=== PATIENT | female | born 1980 | race Caucasian/White ===

== ENCOUNTER 2017-11-01 14:30 | Outpatient (RCR) | payer MEDICARE ==
[2015-04-21 17:25] VITALS: BP 112/68
[~2017-11-01 14:30] MED LIST: ABILIFY2 MG PO; AMBIEN 10MG10 MG PO; AMBIEN10 MG PO; AMOXICILLIN 8751 TAB PO; ATIVAN0.5 MG PO; CLONIDINE0.1 MG PO; CYMBALTA PO; DIAMOX 250MG250 MG PO; ELAVIL100 MG PO; ELAVIL25 MG PO; ELAVIL75 MG PO; FIORICET 325 MG1 TA1 PO; FIORICET 325 MG1 TAB PO; FLEXERIL10 MG PO; FLUOXETINE PO; GABAPENTIN100 M1 PO; HYDROCODONE/APAP PO; HYDROXYZINE PAM25 MG PO; IBUPROFEN 200200 MG PO; IMITREX 6M6 MG/0.5 M SQ; IMITREX6 MG/0.5 M IM; KEPPRA500 MG PO; LAMICTAL 100MG100 MG PO; LINZESS145 MCG PO; LIORESAL 1010 MG/TAB PO; LISINOPRIL10 MG PO; LYRICA 100MG C100 M1 PO; LYRICA50 MG PO; MAG-OX 400400 MG PO; NEURONTIN600 M1 PO; NORCO 325 MG-101 TAB PO; NORCO 325 MG-51 TA1 PO; NORCO 325 MG-51 TAB PO; PERCOCET 325 MG1 TA2 PO; PHENERGAN 25 TA25 MG PO; PHENERGAN25 MG RC; PLAQUENIL 200M200 MG PO; PRILOSEC 20MG20 MG PO; PROZAC20 MG PO; PROZAC40 MG PO; REMERON15 MG PO; SEROPHENE50 MG PO; SEROQUEL25 MG PO; SEROQUEL50 MG PO; SKELAXIN400 MG PO; STADOL NASA25 MG/BOT NS; TEGRETOL100 MG PO; TOPAMAX100 MG PO; TOPAMAX50 MG PO; ULTRAM 50MG TAB50 MG PO; VERAPAMIL240 MG PO; VERAPAMIL80 MG PO; VISTARIL50 MG PO; XANAX0.5 MG PO; ZANAFLEX4 MG PO; ZANTAC 7575 MG PO; ZOFRAN4 M2 PO
== END 2017-11-01 15:00 | disposition home or self-care (01) ==
LOC: PT
DX: M47.817 Spondylosis without myelopathy or radiculopathy, lumbosacral region (principal); M53.3 Sacrococcygeal disorders, not elsewhere classified; Z88.1 Allergy status to other antibiotic agents; Z88.5 Allergy status to narcotic agent; Z88.8 Allergy status to other drugs, medicaments and biological substances

== ENCOUNTER → 2018-03-22 | Outpatient (CLI) | payer MEDICARE ==
[2015-04-21 17:25] VITALS: BP 112/68
[2018-03-22 14:49] LABS: URINE APPEARANCE CLOUDY; URINE BILIRUBIN NEGATIVE (NEGATIVE); URINE BLOOD NEGATIVE (NEGATIVE); URINE COLOR YELLOW; URINE GLUCOSE NEGATIVE (NEGATIVE); URINE KETONE NEGATIVE (NEGATIVE); URINE LEUKOCYTE ESTERASE NEGATIVE (NEGATIVE); URINE NITRATE NEGATIVE (NEGATIVE); URINE PROTEIN(semi-quant) NEGATIVE (NEGATIVE); URINE UROBILINOGEN NORMAL (NORMAL); URINE WBC 0-1 /hpf (0-3)
== END ==
LOC: RAD 13:04
PROVIDERS: Physician Assistant
DX: M79.604 Pain in right leg (principal); R22.41 Localized swelling, mass and lump, right lower limb; R30.0 Dysuria

== ENCOUNTER 2018-10-10 17:39 | Emergency (ER) | payer MEDICARE, OTHER ==
[~2018-10-10] VITALS: Ht 162.6 cm; Wt 61.4 kg
[2018-10-10] MEDS ORDERED: TIZANIDINE HYDRO4 MG PO (17:55)
[2018-10-10] MEDS ORDERED: TOPIRAMATE200 MG PO (17:55)
[2018-10-10] MEDS ORDERED: CYPROHEPTADINE H4 M1 PO (17:56)
[2018-10-10] MEDS ORDERED: DULOXETINE60 MG PO (17:56)
[2018-10-10] MEDS ORDERED: ZOFRAN ODT4 MG PO (17:56)
[2018-10-10] MEDS ORDERED: OXYCODONE HCL10 M1 PO (17:56)
[2018-10-10] MEDS ORDERED: AMOXICILLIN AND1 TA2 PO (17:56)
[2018-10-10] MEDS ORDERED: NEURONTIN300 MG/CAP (17:56)
[2018-10-10] MEDS ORDERED: ALPRAZOLAM1 MG PO (17:56)
[2018-10-10 18:25] LABS: EOS # 0.1 (0.04-0.40); EOS % 0.9 % (1.0-5.0); HEMATOCRIT 39.9 % (37.0-47.0); HEMOGLOBIN 13.6 g/dL (12.5-16.0); LYMPH# 4.5 (1.50-4.00); MEAN CELL VOLUME 94 fl (78-100); MEAN CORPUSCULAR HEMOGLOBIN 32 pg (27-31); MEAN CORPUSCULAR HGB CONC 34 g/dL (33-37); MEAN PLATELET VOLUME 8.5 fl (7.4-10.4); MONO # 0.7 (0.20-0.80); NEU # 3.3 (1.40-6.50); PLATELET COUNT 324 K/mm3 (130-400); RED BLOOD COUNT 4.23 M/mm3 (4.10-5.30); RED CELL DISTRIBUTION WIDTH 13.3 % (11.5-14.5); WHITE BLOOD COUNT 8.7 K/mm3 (4.8-10.8)
[2018-10-10 18:37] LABS: ALBUMIN 4.1 g/dL (3.5-5.0); POTASSIUM 3.6 mmol/L (3.6-5.0); TOTAL BILIRUBIN 0.4 mg/dL (0.2-1.3); TOTAL PROTEIN 7.3 g/dL (6.3-8.2)
[2018-10-10] MEDS ORDERED: PHENERGAN 25 TA25 MG PO (19:54)
[2018-10-10 20:08] VITALS: BP 116/69
[2018-10-10 20:11] LABS: URINE APPEARANCE HAZY; URINE BILIRUBIN NEGATIVE (NEGATIVE); URINE BLOOD NEGATIVE (NEGATIVE); URINE COLOR YELLOW; URINE GLUCOSE NEGATIVE (NEGATIVE); URINE KETONE NEGATIVE (NEGATIVE); URINE LEUKOCYTE ESTERASE NEGATIVE (NEGATIVE); URINE NITRATE NEGATIVE (NEGATIVE); URINE PROTEIN(semi-quant) TRACE mg/dL (NEGATIVE); URINE UROBILINOGEN NORMAL (NORMAL); URINE WBC 0-1 /hpf (0-3)
[2018-10-10 20:12] LABS: URINE MUCUS PRESENT (NOT PRESENT)
== END 2018-10-10 20:16 | disposition home or self-care (01) ==
LOC: ED 17:39
PROVIDERS: Nurse Practitioner
DX: A08.4 Viral intestinal infection, unspecified (principal); E86.0 Dehydration; J45.909 Unspecified asthma, uncomplicated; M79.7 Fibromyalgia; F17.210 Nicotine dependence, cigarettes, uncomplicated; Z90.710 Acquired absence of both cervix and uterus; Z90.49 Acquired absence of other specified parts of digestive tract; Z90.89 Acquired absence of other organs
CPT/HCPCS: J2550; J7030

== ENCOUNTER 2018-10-25 17:28 | Emergency (ER) | payer MEDICARE, MEDICAID ==
[~2018-10-25] VITALS: Ht 162.6 cm; Wt 61.4 kg
[~2018-10-25 17:28] MED LIST changes: +ALPRAZOLAM1 MG PO; +AMOXICILLIN AND1 TA2 PO; +CYPROHEPTADINE H4 M1 PO; +DULOXETINE60 MG PO; +NEURONTIN300 MG/CAP; +OXYCODONE HCL10 M1 PO; +TIZANIDINE HYDRO4 MG PO; +TOPIRAMATE200 MG PO; +ZOFRAN ODT4 MG PO
[2018-10-25 18:25] LABS: EOS # 0.1 (0.04-0.40); EOS % 1.2 % (1.0-5.0); HEMATOCRIT 40.3 % (37.0-47.0); HEMOGLOBIN 13.7 g/dL (12.5-16.0); MEAN CELL VOLUME 96 fl (78-100); MEAN CORPUSCULAR HEMOGLOBIN 33 pg (27-31); MEAN CORPUSCULAR HGB CONC 34 g/dL (33-37); MEAN PLATELET VOLUME 8.3 fl (7.4-10.4); MONO # 0.8 (0.20-0.80); NEU # 3.3 (1.40-6.50); PLATELET COUNT 248 K/mm3 (130-400); RED BLOOD COUNT 4.21 M/mm3 (4.10-5.30); RED CELL DISTRIBUTION WIDTH 13.2 % (11.5-14.5)
[2018-10-25 18:30] LABS: LYMPH# 4.8 (1.50-4.00)
[2018-10-25 18:37] LABS: ALBUMIN 3.9 g/dL (3.5-5.0); ALT/SGPT 26 U/L (9-52); AST-SGOT 17 U/L (14-36); CALCIUM 8.5 mg/dL (8.4-10.2); CARBON DIOXIDE 31 mmol/L (22-30); GLUCOSE 66 mg/dL (65-105); POTASSIUM 3.7 mmol/L (3.6-5.0); SODIUM 142 mmol/L (137-145); TOTAL BILIRUBIN 0.2 mg/dL (0.2-1.3); TOTAL PROTEIN 6.7 g/dL (6.3-8.2)
[2018-10-25 19:05] LABS: URINE APPEARANCE CLEAR; URINE COLOR YELLOW
[2018-10-25 19:06] LABS: PH-URINE 5.5 (5.0 - 8.0); URINE BILIRUBIN NEGATIVE (NEGATIVE); URINE BLOOD NEGATIVE (NEGATIVE); URINE GLUCOSE NEGATIVE (NEGATIVE); URINE KETONE NEGATIVE (NEGATIVE); URINE LEUKOCYTE ESTERASE NEGATIVE (NEGATIVE); URINE NITRATE NEGATIVE (NEGATIVE); URINE PROTEIN(semi-quant) TRACE mg/dL (NEGATIVE); URINE UROBILINOGEN NORMAL (NORMAL); URINE WBC 0-1 /hpf (0-3)
[2018-10-25 19:09] LABS: ACETAMINOPHEN < 4 ug/mL (10-30)
[2018-10-25 22:09] VITALS: BP 109/70
== END 2018-10-25 22:09 | disposition home or self-care (01) ==
LOC: ED 17:28
PROVIDERS: Family Medicine
DX: R40.0 Somnolence (principal); T50.905A Adverse effect of unspecified drugs, medicaments and biological substances, initial encounter; M79.7 Fibromyalgia; K58.9 Irritable bowel syndrome, unspecified; F17.210 Nicotine dependence, cigarettes, uncomplicated; Z90.49 Acquired absence of other specified parts of digestive tract; Z90.89 Acquired absence of other organs; Z90.710 Acquired absence of both cervix and uterus

== ENCOUNTER 2018-12-20 10:00 | Outpatient (RCR) | payer MEDICARE, MEDICAID | END 2018-12-20 10:30 | disposition home or self-care (01) | LOC: SPEECH 10:00 | DX: R41.3 Other amnesia (principal) ==

== ENCOUNTER → 2019-01-20 | Outpatient (CLI) | payer MEDICARE, MEDICAID | LOC: RAD 10:13 | DX: R10.13 Epigastric pain (principal); R10.32 Left lower quadrant pain | CPT/HCPCS: Q9967 ==

== ENCOUNTER → 2019-01-28 | Outpatient (CLI) | payer MEDICARE, MEDICAID ==
[2019-01-28 12:42] LABS: ALBUMIN 4.2 g/dL (3.5-5.0); CALCIUM 9.4 mg/dL (8.4-10.2); POTASSIUM 3.8 mmol/L (3.5-5.1); TOTAL BILIRUBIN 0.3 mg/dL (0.2-1.2); TOTAL PROTEIN 7.4 g/dL (6.4-8.3)
[2019-01-28 14:05] LABS: EOS # 0.1 (0.04-0.40); EOS % 1.4 % (1.0-5.0); HEMOGLOBIN 13.3 g/dL (12.5-16.0); LYMPH# 3.4 (1.50-4.00); MEAN CELL VOLUME 94 fl (78-100); MEAN CORPUSCULAR HEMOGLOBIN 31 pg (27-31); MEAN CORPUSCULAR HGB CONC 33 g/dL (33-37); MONO # 0.7 (0.20-0.80); NEU # 3.7 (1.40-6.50); PLATELET COUNT 347 K/mm3 (130-400); RED BLOOD COUNT 4.25 M/mm3 (4.10-5.30); RED CELL DISTRIBUTION WIDTH 13.1 % (11.5-14.5); WHITE BLOOD COUNT 7.9 K/mm3 (4.8-10.8)
== END ==
LOC: LAB 11:54
DX: K59.00 Constipation, unspecified (principal); R10.84 Generalized abdominal pain; R14.0 Abdominal distension (gaseous); R19.7 Diarrhea, unspecified

== ENCOUNTER → 2019-02-04 | Outpatient (CLI) | payer MEDICARE, MEDICAID | LOC: LAB 16:55 | DX: K59.00 Constipation, unspecified (principal); R19.7 Diarrhea, unspecified; R14.0 Abdominal distension (gaseous); R10.84 Generalized abdominal pain ==

== ENCOUNTER → 2019-03-26 | Outpatient (CLI) | payer MEDICARE, MEDICAID | LOC: RAD 10:22 | DX: G43.709 Chronic migraine without aura, not intractable, without status migrainosus (principal) | CPT/HCPCS: A9585 ==

== ENCOUNTER → 2019-06-13 | Outpatient (CLI) | payer MEDICARE, MEDICAID ==
[2019-06-13 11:53] LABS: EOS # 0.1 (0.04-0.40); EOS % 1.9 % (1.0-5.0); HEMOGLOBIN 13.5 g/dL (12.5-16.0); LYMPH# 2.7 (1.50-4.00); MEAN CELL VOLUME 95 fl (78-100); MEAN CORPUSCULAR HEMOGLOBIN 32 pg (27-31); MEAN CORPUSCULAR HGB CONC 34 g/dL (33-37); MEAN PLATELET VOLUME 8.2 fl (7.4-10.4); MONO # 0.5 (0.20-0.80); NEU # 3.1 (1.40-6.50); PLATELET COUNT 294 K/mm3 (130-400); RED CELL DISTRIBUTION WIDTH 13.9 % (11.5-14.5); WHITE BLOOD COUNT 6.5 K/mm3 (4.8-10.8)
[2019-06-13 12:01] LABS: ALBUMIN 3.8 g/dL (3.5-5.0)
[2019-06-13 12:02] LABS: POTASSIUM 3.7 mmol/L (3.5-5.1)
[2019-06-13 12:03] LABS: CALCIUM 8.5 mg/dL (8.3-10.5)
[2019-06-13 12:04] LABS: TOTAL PROTEIN 6.7 g/dL (6.4-8.3)
[2019-06-13 12:06] LABS: TOTAL BILIRUBIN 0.2 mg/dL (0.2-1.2)
== END ==
LOC: LAB 11:31
PROVIDERS: Physician Assistant
DX: R10.9 Unspecified abdominal pain (principal); R19.7 Diarrhea, unspecified

== ENCOUNTER → 2019-06-23 | Outpatient (CLI) | payer MEDICARE, MEDICAID | LOC: LAB 14:30 | DX: R10.9 Unspecified abdominal pain (principal); R19.7 Diarrhea, unspecified ==

== ENCOUNTER → 2020-04-09 | Outpatient (CLI) | payer MEDICARE, MEDICAID | LOC: RAD 09:21 | DX: R63.4 Abnormal weight loss (principal); R05 Cough; Z90.49 Acquired absence of other specified parts of digestive tract; Z97.8 Presence of other specified devices ==

== ENCOUNTER → 2020-05-21 | Outpatient (CLI) | payer MEDICARE, MEDICAID ==
[~2020-05-21] MED LIST changes: +BREO ELLIPTA 21 EACH IH; +DICYCLOMINE; -NEURONTIN300 MG/CAP; +NEURONTIN300 MG/CAP PO; +REGLAN10 M2 PO; +SUCRALFATE1 G1 PO
== END ==
LOC: LAB 10:48
DX: R60.0 Localized edema (principal); R07.89 Other chest pain

== ENCOUNTER → 2020-06-22 | Outpatient (CLI) | payer MEDICARE, MEDICAID ==
[2020-05-25 23:11] VITALS: BP 123/77
== END ==
LOC: VAS 09:36 → RAD 12:00
DX: R60.0 Localized edema (principal)

== ENCOUNTER → 2020-06-25 | Outpatient (CLI) | payer MEDICARE, MEDICAID ==
[2020-05-21 11:02] LABS: HEMATOCRIT 40.9 % (37.0-47.0); HEMOGLOBIN 13.4 g/dL (12.5-16.0); MEAN PLATELET VOLUME 7.9 fl (7.4-10.4); RED BLOOD COUNT 4.29 M/mm3 (4.10-5.30); RED CELL DISTRIBUTION WIDTH 13.9 % (11.5-14.5); WHITE BLOOD COUNT 6.8 K/mm3 (4.8-10.8)
[2020-05-21 11:12] LABS: POTASSIUM 4.1 mmol/L (3.5-5.1); SODIUM 139 mmol/L (136-145)
[2020-05-21 11:13] LABS: CALCIUM 8.8 mg/dL (8.3-10.5); GLUCOSE 108 mg/dL (65-105)
[2020-05-21 11:15] LABS: CARBON DIOXIDE 24 mmol/L (22-29)
[2020-05-21 11:26] LABS: D-DIMER 0.28 mg/L FEU (0.15-0.50)
[2020-05-21 11:32] LABS: TROPONIN-I < 0.03 ng/mL (<0.030)
[2020-05-25 23:11] VITALS: BP 123/77
== END ==
LOC: CARDLAB 06-04 07:43 → CARDREHAB 09:51 → CARDLAB 13:05
PROVIDERS: Internal Medicine Interventional Cardiology
DX: R07.89 Other chest pain (principal)
CPT/HCPCS: A9500

== ENCOUNTER → 2020-07-27 | Outpatient (CLI) | payer MEDICARE, MEDICAID ==
[2020-05-25 23:11] VITALS: BP 123/77
== END ==
LOC: RAD 15:30
DX: R05 Cough (principal); R06.02 Shortness of breath

== ENCOUNTER → 2020-12-30 | Outpatient (CLI) | payer MEDICARE, MEDICAID ==
[2020-05-25 23:11] VITALS: BP 123/77
[~2020-12-30] MED LIST changes: +BENTYL 20MG20 MG/TAB PO; +ESZOPICLONE3 MG PO; +MACROBID 100 M100 MG PO; +MEDROL DOSEPAK4 MG PO; +OMEPRAZOLE40 MG PO; +SUBOXONE 8 MG-21 FIL SL; +TOPAMAX50 M1 PO
== END ==
LOC: RAD 09:24
DX: K58.0 Irritable bowel syndrome with diarrhea (principal); K31.84 Gastroparesis; N32.9 Bladder disorder, unspecified
CPT/HCPCS: Q9967

== ENCOUNTER 2021-02-21 11:37 | Emergency (ER) | payer MEDICARE, MEDICAID ==
[~2021-02-21 11:37] MED LIST changes: -BENTYL 20MG20 MG/TAB PO; -ESZOPICLONE3 MG PO; -MACROBID 100 M100 MG PO; -MEDROL DOSEPAK4 MG PO; -OMEPRAZOLE40 MG PO; -SUBOXONE 8 MG-21 FIL SL; -TOPAMAX50 M1 PO
[2021-02-21] MEDS ORDERED: OMEPRAZOLE40 MG PO (12:11)
[2021-02-21] MEDS ORDERED: TOPAMAX50 M1 PO (12:12)
[2021-02-21] MEDS ORDERED: BENTYL 20MG20 MG/TAB PO (12:22)
[2021-02-21] MEDS ORDERED: ESZOPICLONE3 MG PO (12:24)
[2021-02-21] MEDS ORDERED: SUBOXONE 8 MG-21 FIL SL (12:25)
[2021-02-21 12:40] LABS: ALBUMIN 3.5 g/dL (3.5-5.0); POTASSIUM 3.6 mmol/L (3.5-5.1); SODIUM 140 mmol/L (136-145)
[2021-02-21 12:41] LABS: BASO # 0.03 (0.02-0.10); EOS # 0.06 (0.04-0.40); EOS % 1.1 % (1.0-5.0); HEMATOCRIT 38.8 % (37.0-47.0); HEMOGLOBIN 13.2 g/dL (12.5-16.0); LYMPH# 2.38 (1.50-4.00); MEAN CELL VOLUME 88 fl (78-100); MEAN CORPUSCULAR HEMOGLOBIN 30 pg (27-31); MEAN CORPUSCULAR HGB CONC 34 g/dL (33-37); MEAN PLATELET VOLUME 8.4 fl (7.4-10.4); MONO # 0.41 (0.20-0.80); NEU # 2.37 (1.40-6.50); PLATELET COUNT 225 K/mm3 (130-400); RED CELL DISTRIBUTION WIDTH 12.5 % (11.5-14.5); WHITE BLOOD COUNT 5.3 K/mm3 (4.8-10.8)
[2021-02-21 12:42] LABS: CALCIUM 8.4 mg/dL (8.3-10.5)
[2021-02-21 12:43] LABS: GLUCOSE 82 mg/dL (65-105); TOTAL PROTEIN 6.2 g/dL (6.4-8.3)
[2021-02-21 12:44] LABS: CARBON DIOXIDE 23 mmol/L (22-29)
[2021-02-21 12:45] LABS: TOTAL BILIRUBIN 0.3 mg/dL (0.2-1.2)
[2021-02-21 12:48] LABS: AST-SGOT 14 U/L (5-34)
[2021-02-21 12:49] LABS: ALT/SGPT 10 U/L (0-55)
[2021-02-21 12:50] LABS: LIPASE 20 U/L (8-78)
[2021-02-21 12:58] LABS: TROPONIN-I < 0.03 ng/mL (<0.030)
[2021-02-21 13:34] LABS: URINE APPEARANCE HAZY; URINE COLOR YELLOW
[2021-02-21 13:35] LABS: URINE BILIRUBIN 1+ (NEGATIVE); URINE BLOOD NEGATIVE (NEGATIVE); URINE GLUCOSE NEGATIVE (NEGATIVE); URINE KETONE NEGATIVE (NEGATIVE); URINE LEUKOCYTE ESTERASE TRACE (NEGATIVE); URINE MUCUS PRESENT (NOT PRESENT); URINE NITRATE NEGATIVE (NEGATIVE); URINE PROTEIN(semi-quant) NEGATIVE (NEGATIVE); URINE UROBILINOGEN NORMAL (NORMAL)
[2021-02-21] MEDS ORDERED: MACROBID 100 M100 MG PO (14:03)
[2021-02-21 14:17] VITALS: BP 125/90
== END 2021-02-21 14:20 | disposition home or self-care (01) ==
LOC: ED 11:37
PROVIDERS: Nurse Practitioner
DX: K08.89 Other specified disorders of teeth and supporting structures (principal); N39.0 Urinary tract infection, site not specified; F41.9 Anxiety disorder, unspecified; F17.210 Nicotine dependence, cigarettes, uncomplicated; Z88.1 Allergy status to other antibiotic agents; Z79.899 Other long term (current) drug therapy
CPT/HCPCS: J7030

== ENCOUNTER 2021-03-16 13:02 | Emergency (ER) | payer MEDICARE, MEDICAID ==
[~2021-03-16 13:02] MED LIST changes: +BENTYL 20MG20 MG/TAB PO; +ESZOPICLONE3 MG PO; +MACROBID 100 M100 MG PO; +OMEPRAZOLE40 MG PO; +SUBOXONE 8 MG-21 FIL SL; +TOPAMAX50 M1 PO
[2021-03-16 13:31] LABS: BASO # 0.03 (0.02-0.10); EOS # 0.08 (0.04-0.40); EOS % 1.3 % (1.0-5.0); HEMOGLOBIN 13.1 g/dL (12.5-16.0); LYMPH# 2.75 (1.50-4.00); MEAN CELL VOLUME 88 fl (78-100); MEAN CORPUSCULAR HEMOGLOBIN 30 pg (27-31); MEAN CORPUSCULAR HGB CONC 34 g/dL (33-37); MEAN PLATELET VOLUME 8.4 fl (7.4-10.4); MONO # 0.46 (0.20-0.80); NEU # 3.01 (1.40-6.50); PLATELET COUNT 248 K/mm3 (130-400); RED BLOOD COUNT 4.41 M/mm3 (4.10-5.30); RED CELL DISTRIBUTION WIDTH 12.4 % (11.5-14.5); WHITE BLOOD COUNT 6.3 K/mm3 (4.8-10.8)
[2021-03-16 13:33] LABS: POTASSIUM 3.7 mmol/L (3.5-5.1); SODIUM 139 mmol/L (136-145)
[2021-03-16 13:34] LABS: ALBUMIN 3.8 g/dL (3.5-5.0)
[2021-03-16 13:35] LABS: CALCIUM 8.6 mg/dL (8.3-10.5)
[2021-03-16 13:37] LABS: CARBON DIOXIDE 23 mmol/L (22-29); GLUCOSE 90 mg/dL (65-105); TOTAL PROTEIN 6.7 g/dL (6.4-8.3)
[2021-03-16 13:38] LABS: TOTAL BILIRUBIN 0.3 mg/dL (0.2-1.2)
[2021-03-16 13:41] LABS: AST-SGOT 16 U/L (5-34)
[2021-03-16 13:44] LABS: ALT/SGPT 11 U/L (0-55)
[2021-03-16 13:51] LABS: TROPONIN-I < 0.03 ng/mL (<0.030)
[2021-03-16 14:08] VITALS: BP 122/82
== END 2021-03-16 14:08 | disposition home or self-care (01) ==
LOC: ED 13:02
PROVIDERS: Physician Assistant
DX: R53.83 Other fatigue (principal); E87.6 Hypokalemia; R07.89 Other chest pain; F41.9 Anxiety disorder, unspecified; F32.9 Major depressive disorder, single episode, unspecified; I10 Essential (primary) hypertension; F17.210 Nicotine dependence, cigarettes, uncomplicated; Z88.1 Allergy status to other antibiotic agents; Z79.899 Other long term (current) drug therapy

== ENCOUNTER → 2021-05-19 | Outpatient (CLI) | payer MEDICARE, MEDICAID ==
[~2021-05-19] MED LIST changes: +MEDROL DOSEPAK4 MG PO
== END ==
LOC: RAD 18:11
DX: M47.27 Other spondylosis with radiculopathy, lumbosacral region (principal); M51.17 Intervertebral disc disorders with radiculopathy, lumbosacral region; M47.26 Other spondylosis with radiculopathy, lumbar region; M51.16 Intervertebral disc disorders with radiculopathy, lumbar region

== ENCOUNTER → 2021-05-20 | Outpatient (CLI) | payer MEDICARE, MEDICAID | LOC: RAD 11:00 | DX: I73.9 Peripheral vascular disease, unspecified (principal); F17.200 Nicotine dependence, unspecified, uncomplicated ==

== ENCOUNTER → 2021-07-21 | Outpatient (CLI) | payer MEDICARE, MEDICAID | LOC: LAB 15:15 | DX: K58.9 Irritable bowel syndrome, unspecified (principal); K21.00 Gastro-esophageal reflux disease with esophagitis, without bleeding; K31.84 Gastroparesis ==

== ENCOUNTER → 2021-07-28 | Outpatient (CLI) | payer MEDICARE, MEDICAID | LOC: RAD 14:18 | DX: R05.9 Cough, unspecified (principal) ==

== ENCOUNTER → 2021-08-04 | Day surgery (SDC) | payer MEDICARE, MEDICAID | END | disposition home or self-care (01) | LOC: MSO 08:23 | DX: K21.9 Gastro-esophageal reflux disease without esophagitis (principal); K58.0 Irritable bowel syndrome with diarrhea; K58.9 Irritable bowel syndrome, unspecified; K63.89 Other specified diseases of intestine; K92.1 Melena; K31.84 Gastroparesis; R11.2 Nausea with vomiting, unspecified; J45.909 Unspecified asthma, uncomplicated; G43.909 Migraine, unspecified, not intractable, without status migrainosus; J44.9 Chronic obstructive pulmonary disease, unspecified; M79.7 Fibromyalgia; F41.9 Anxiety disorder, unspecified; F32.A Depression, unspecified; F17.210 Nicotine dependence, cigarettes, uncomplicated; Z90.49 Acquired absence of other specified parts of digestive tract; Z79.899 Other long term (current) drug therapy; Z90.89 Acquired absence of other organs | CPT/HCPCS: 00813; J2704; J3010; J7120 ==

== ENCOUNTER 2021-08-13 21:01 | Emergency (ER) | payer MEDICARE, MEDICAID ==
[~2021-08-13] VITALS: Ht 162.6 cm; Wt 51.8 kg
[~2021-08-13 21:01] MED LIST changes: -MEDROL DOSEPAK4 MG PO
[2021-08-13] MEDS ORDERED: MEDROL DOSEPAK4 MG PO (21:18)
[2021-08-13 22:53] LABS: HEMATOCRIT 39.7 % (37.0-47.0); HEMOGLOBIN 13.2 g/dL (12.5-16.0); MEAN CELL VOLUME 90 fl (78-100); RED BLOOD COUNT 4.42 M/mm3 (4.10-5.30); WHITE BLOOD COUNT 5.8 K/mm3 (4.8-10.8)
[2021-08-13 22:54] LABS: BASO # 0.02 K/mm3 (0.02-0.10); EOS # 0.01 K/mm3 (0.04-0.40); EOS % 0.2 % (1.0-5.0); LYMPH# 1.22 K/mm3 (1.50-4.00); MEAN CORPUSCULAR HEMOGLOBIN 30 pg (27-31); MEAN CORPUSCULAR HGB CONC 33 g/dL (33-37); MEAN PLATELET VOLUME 8.4 fl (7.4-10.4); MONO # 0.18 K/mm3 (0.20-0.80); NEU # 4.33 K/mm3 (1.40-6.50); PLATELET COUNT 318 K/mm3 (130-400)
[2021-08-13 23:01] LABS: ALBUMIN 3.9 g/dL (3.5-5.0); POTASSIUM 4.2 mmol/L (3.5-5.1)
[2021-08-13 23:02] LABS: CALCIUM 8.8 mg/dL (8.3-10.5)
[2021-08-13 23:03] LABS: TOTAL PROTEIN 6.5 g/dL (6.4-8.3)
[2021-08-13 23:05] LABS: TOTAL BILIRUBIN 0.2 mg/dL (0.2-1.2)
[2021-08-13 23:30] VITALS: BP 118/75
[2021-08-15 10:29] LABS: RESPIRATORY VIRUS PANEL-PCR AMS
== END 2021-08-13 23:30 | disposition home or self-care (01) ==
LOC: ED 21:01
PROVIDERS: Family Medicine
DX: R05.9 Cough, unspecified (principal); R53.81 Other malaise; R53.83 Other fatigue; G43.909 Migraine, unspecified, not intractable, without status migrainosus; K21.9 Gastro-esophageal reflux disease without esophagitis; F32.A Depression, unspecified; F17.210 Nicotine dependence, cigarettes, uncomplicated; Z20.822 Contact with and (suspected) exposure to COVID-19; Z79.899 Other long term (current) drug therapy

== ENCOUNTER → 2021-11-10 | Outpatient (CLI) | payer MEDICARE, MEDICAID ==
[~2021-11-10] MED LIST changes: +MEDROL DOSEPAK4 MG PO
[2021-11-10 15:52] LABS: POTASSIUM 3.8 mmol/L (3.5-5.1)
[2021-11-10 15:53] LABS: ALBUMIN 3.6 g/dL (3.5-5.0); CALCIUM 8.8 mg/dL (8.3-10.5)
[2021-11-10 15:55] LABS: HEMATOCRIT 38.7 % (37.0-47.0); HEMOGLOBIN 12.7 g/dL (12.5-16.0); MEAN CELL VOLUME 90 fl (78-100); MEAN CORPUSCULAR HEMOGLOBIN 29 pg (27-31); MEAN CORPUSCULAR HGB CONC 33 g/dL (33-37); MEAN PLATELET VOLUME 8.7 fl (7.4-10.4); PLATELET COUNT 227 K/mm3 (130-400); RED BLOOD COUNT 4.32 M/mm3 (4.10-5.30); RED CELL DISTRIBUTION WIDTH 12.9 % (11.5-14.5); TOTAL PROTEIN 6.3 g/dL (6.4-8.3); WHITE BLOOD COUNT 5.4 K/mm3 (4.8-10.8)
[2021-11-10 15:56] LABS: TOTAL BILIRUBIN 0.2 mg/dL (0.2-1.2)
[2021-11-10 16:02] LABS: MAGNESIUM 1.9 mg/dL (1.60-2.60)
[2021-11-10 16:59] LABS: MONOCYTE 2 % (3-10); NEUTROPHILS 58 % (42-75)
[2021-11-10 17:00] LABS: LYMPHOCYTE 39 % (20-51)
== END ==
LOC: LAB 15:25
PROVIDERS: Nurse Practitioner Family
DX: L65.9 Nonscarring hair loss, unspecified (principal); R53.83 Other fatigue; R51.9 Headache, unspecified; R19.5 Other fecal abnormalities

== ENCOUNTER → 2022-01-25 | Outpatient (CLI) | payer MEDICARE, MEDICAID ==
[2022-01-25 08:34] LABS: ALBUMIN 3.5 g/dL (3.5-5.0); POTASSIUM 3.6 mmol/L (3.5-5.1)
[2022-01-25 08:35] LABS: CALCIUM 8.8 mg/dL (8.3-10.5)
[2022-01-25 08:36] LABS: TOTAL PROTEIN 6.2 g/dL (6.4-8.3)
[2022-01-25 08:38] LABS: TOTAL BILIRUBIN 0.2 mg/dL (0.2-1.2)
== END ==
LOC: LAB 07:55
PROVIDERS: Psychiatry & Neurology Neurology
DX: Z51.81 Encounter for therapeutic drug level monitoring (principal); G43.709 Chronic migraine without aura, not intractable, without status migrainosus

== ENCOUNTER → 2022-10-26 | Outpatient (CLI) | payer MEDICARE, MEDICAID | LOC: RAD 11:45 | DX: M54.2 Cervicalgia (principal); M54.6 Pain in thoracic spine ==

== ENCOUNTER 2023-09-22 12:11 | Emergency (ER) | payer MEDICARE, MEDICAID ==
[~2023-09-22] VITALS: Ht 162.6 cm; Wt 43.1 kg
[2023-09-22] MEDS ORDERED: AMOXICILLIN AND1 TA2 PO (14:03)
[2023-09-22 14:22] VITALS: BP 121/88
== END 2023-09-22 14:25 | disposition home or self-care (01) ==
LOC: ED 12:11
DX: S61.251A Open bite of left index finger without damage to nail, initial encounter (principal); Z88.1 Allergy status to other antibiotic agents; W54.0XXA Bitten by dog, initial encounter

== ENCOUNTER → 2023-10-09 | Outpatient (CLI) | payer MEDICARE, MEDICAID ==
[2023-10-09 15:33] LABS: BASO # 0.02 K/mm3 (0.02-0.10); EOS # 0.04 K/mm3 (0.04-0.40); EOS % 0.8 % (1.0-5.0); HEMATOCRIT 41.6 % (37.0-47.0); HEMOGLOBIN 13.4 g/dL (12.5-16.0); LYMPH# 2.66 K/mm3 (1.50-4.00); MEAN CELL VOLUME 90 fl (78-100); MEAN CORPUSCULAR HEMOGLOBIN 29 pg (27-31); MEAN CORPUSCULAR HGB CONC 32 g/dL (33-37); MEAN PLATELET VOLUME 8.2 fl (7.4-10.4); MONO # 0.38 K/mm3 (0.20-0.80); NEU # 1.99 K/mm3 (1.40-6.50); PLATELET COUNT 213 K/mm3 (130-400); RED BLOOD COUNT 4.61 M/mm3 (4.10-5.30); RED CELL DISTRIBUTION WIDTH 12.9 % (11.5-14.5); WHITE BLOOD COUNT 5.1 K/mm3 (4.8-10.8)
[2023-10-09 15:40] LABS: SODIUM 139 mmol/L (136-145)
[2023-10-09 15:41] LABS: ALBUMIN 3.7 g/dL (3.5-5.0)
[2023-10-09 15:42] LABS: CALCIUM 8.7 mg/dL (8.3-10.5)
[2023-10-09 15:43] LABS: GLUCOSE 73 mg/dL (65-105)
[2023-10-09 15:44] LABS: CARBON DIOXIDE 24 mmol/L (22-29)
[2023-10-09 15:45] LABS: TOTAL BILIRUBIN 0.2 mg/dL (0.2-1.2)
[2023-10-09 15:48] LABS: AST-SGOT 15 U/L (5-34)
[2023-10-09 15:50] LABS: ALT/SGPT 11 U/L (0-55)
[2023-10-09 15:51] LABS: URINE APPEARANCE CLEAR (CLEAR); URINE BILIRUBIN NEGATIVE (NEGATIVE); URINE BLOOD NEGATIVE (NEGATIVE); URINE COLOR YELLOW (YELLOW); URINE GLUCOSE NEGATIVE (NEGATIVE); URINE KETONE NEGATIVE (NEGATIVE); URINE LEUKOCYTE ESTERASE NEGATIVE (NEGATIVE); URINE NITRATE NEGATIVE (NEGATIVE); URINE PROTEIN(semi-quant) NEGATIVE (NEGATIVE); URINE WBC 0-1 /hpf (0-3)
[2023-10-10 11:12] LABS: ANA SCREEN with REFLEX Negative (Negative)
== END ==
LOC: RAD 14:00 → LAB 14:16
PROVIDERS: Physician Assistant
DX: Z00.00 Encounter for general adult medical examination without abnormal findings (principal); R10.9 Unspecified abdominal pain; M25.50 Pain in unspecified joint; E78.5 Hyperlipidemia, unspecified; R63.4 Abnormal weight loss; Z79.899 Other long term (current) drug therapy
CPT/HCPCS: Q9967

== ENCOUNTER → 2024-03-26 | Outpatient (CLI) | payer MEDICARE, MEDICAID | LOC: RAD 12:04 | DX: M51.36 Other intervertebral disc degeneration, lumbar region (principal) ==

== ENCOUNTER 2024-05-02 13:09 | Emergency (ER) | payer MEDICARE, MEDICAID ==
[~2024-05-02] VITALS: Ht 162.6 cm; Wt 45.4 kg
[2024-05-02 13:44] LABS: BASO # 0.03 K/mm3 (0.02-0.10); EOS % 1.8 % (1.0-5.0); HEMATOCRIT 41.5 % (37.0-47.0); HEMOGLOBIN 13.4 g/dL (12.5-16.0); LYMPH# 3.01 K/mm3 (1.50-4.00); MEAN CELL VOLUME 89 fl (78-100); MEAN CORPUSCULAR HEMOGLOBIN 29 pg (27-31); MEAN CORPUSCULAR HGB CONC 32 g/dL (33-37); MEAN PLATELET VOLUME 8.3 fl (7.4-10.4); MONO # 0.35 K/mm3 (0.20-0.80); NEU # 1.92 K/mm3 (1.40-6.50); PLATELET COUNT 210 K/mm3 (130-400); RED BLOOD COUNT 4.68 M/mm3 (4.10-5.30); WHITE BLOOD COUNT 5.4 K/mm3 (4.8-10.8)
[2024-05-02 13:56] LABS: ALBUMIN 3.5 g/dL (3.5-5.0)
[2024-05-02 13:57] LABS: CALCIUM 8.7 mg/dL (8.3-10.5)
[2024-05-02 13:58] LABS: TOTAL PROTEIN 6.1 g/dL (6.4-8.3)
[2024-05-02 14:00] LABS: TOTAL BILIRUBIN 0.2 mg/dL (0.2-1.2)
[2024-05-02 14:02] LABS: D-DIMER 0.25 mg/L FEU (0.15-0.50)
[2024-05-02 14:20] VITALS: BP 107/75
== END 2024-05-02 14:20 | disposition home or self-care (01) ==
LOC: ED 13:09
PROVIDERS: Family Medicine
DX: M79.605 Pain in left leg (principal); M79.89 Other specified soft tissue disorders; F17.210 Nicotine dependence, cigarettes, uncomplicated